=== PATIENT | male | born 1970 | race Two or more races ===

== ENCOUNTER 2024-08-20 13:50 | Day surgery (SDC) | payer MEDICAID, SELFPAY ==
[2024-08-20] VITALS (11 sets, daily range): BP systolic 107–138; BP diastolic 67–89; PULSE 65–81; RESP 12–20; TEMP 37–37.2; O2SAT 94–100; BMI 31.6
[2024-08-20] MEDS: RINGERS LACTATED 1000 ML 1,000 ML 60 ML IV (14:25)
[2024-08-20] MEDS: MIDAZOLAM INJ 1 MG/ML VIAL 2 ML (ASD USE ONLY) 2 MG IV (14:35)
[2024-08-20] MEDS: fentaNYL CIT INJ 50 mCg/ML AMP 2ML (ASD USE ONLY) IV (14:37)
== END 2024-08-20 15:22 | disposition home or self-care (01) ==
PROVIDERS: PCP Physician Assistant; Referring Provider Surgery; Visit Provider Surgery
PROC: 0DBE8ZX Excision of Large Intestine, Via Natural or Artificial Opening Endoscopic, Diagnostic (ICD-10-PCS; CPT 45380; principal; 2024-08-20 13:45)
DX: Z12.11 Encounter for screening for malignant neoplasm of colon (principal)
CPT/HCPCS: 45378; J2250; J3010; J7120

== ENCOUNTER 2025-03-14 01:04 | Emergency (ER) | payer MEDICAID, SELFPAY ==
[2025-03-14 01:19] VITALS: PULSE 96; RESP 20; O2SAT 98; BMI 28.5
--- NOTE | 2025-03-14 01:19 | PD.EDALCOH ---
ED Alcohol RME/HPI General Chief Complaint: Alcohol Stated Complaint: AMS Time Seen by Provider: 03/14/25 01:35 PST Arrival date/time: 03/14/25 01:04 PST RME / HPI MD complaint: alcohol intoxication RME / HPI narrative: See [facility] for Dr. Perkins's HPI Documentation. Related Data Home Medications ?Medication ?Instructions ?Recorded ?Confirmed lisinopril 20 mg tablet 20 mg PO QDAY 08/20/24 08/20/24 omeprazole 20 mg capsule,delayed 20 mg PO QDAY 08/20/24 08/20/24 release tamsulosin 0.4 mg capsule 0.4 mg PO QDAY 08/20/24 08/20/24 Allergies Allergy/AdvReac Type Severity Reaction Status Date / Time NKA* Allergy Uncoded 03/14/25 01:27 PST Review of Systems Review of Systems Systems Reviewed: All systems reviewed, normal except as documented Past Medical History Past Medical History NEUROLOGIC: Positive Neurological Disorders GENITOURINARY: Positive Genitourinary Disorders, Kidney Stones and Benign Prostatic Hyperplasia Surgical History SURGICAL: Positive Joint Replacement and Open Reduction Internal Fixation (Right Ankle ORIF screws) Social History ALCOHOL: Current ED Exam Narrative Physical exam: See [facility] for Dr. Perkins's Physical Exam Documentation. Course Quality Measures none Orders Category Date Time Status EKG (ED ONLY) *Do not use* NOW Care 03/14/25 01:21 Completed Saline [Insert IV] NOW Care 03/14/25 01:20 Completed Straight [In and Out Catheter] X1 Care 03/14/25 01:[address] cervical spine wo con Stat Exams 03/14/25 01:[address] chest abdomen pelvis wo Stat Exams 03/14/25 01:[address] head/brain wo con Stat Exams 03/14/25 01:21 Completed EKG (ED Only) Stat Exams 03/14/25 01:21 Draft XR chest 1V portable Stat Exams 03/14/25 01:21 Completed Acetaminophen Stat Lab 03/14/25 02:50 Completed Alcohol, Blood Medical Stat Lab 03/14/25 02:50 Completed Ammonia Stat Lab 03/14/25 02:50 Completed Bilirubin,Direct Stat Lab 03/14/25 02:50 Completed CBC Stat Lab 03/14/25 02:50 Completed CK [Creatine Kinase] Stat Lab 03/14/25 02:50 Completed CMP [Comprehensive Metabolic Panel] Stat Lab 03/14/25 02:50 Completed Drug Screen,Urine Stat Lab 03/14/25 02:44 Completed Lipase Stat Lab 03/14/25 02:50 Completed Magnesium Stat Lab 03/14/25 02:50 Completed PT [Prothrombin Time with INR] Stat Lab 03/14/25 02:50 Completed PTT [Partial Thromboplastin Time] Stat Lab 03/14/25 02:50 Completed Salicylate Stat Lab 03/14/25 02:50 Completed Troponin I Stat Lab 03/14/25 02:50 Completed UA, C/S IF [Urinalysis, C/S if Indicated] Stat Lab 03/14/25 02:44 Completed VBG [Venous Blood Gas] Stat Lab 03/14/25 02:50 Completed Ondansetron Inj [Zofran Inj] Med 03/14/25 01:20 Discontinued 4 mg IVP X1 ONE Ringers Lactated 1000 ml [Lactated Ringers] 1,000 ml Med 03/14/25 02:56 Discontinued IV 1,000 mls/hr Sodium Chloride 0.9% 1000 ml [Ns] 1,000 ml Med 03/14/25 01:20 Discontinued IV 999 mls/hr Vital Signs Vital signs: Vital Signs Temperature 98.8 F 03/14/25 01:33 PST Pulse Rate 90 03/14/25 01:33 PST Respiratory Rate 16 03/14/25 01:33 PST Blood Pressure 126/80 03/14/25 01:33 PST Pulse Oximetry (%) 100 03/14/25 01:33 PST Oxygen Delivery Method Room Air 03/14/25 01:33 PST Discharge Plan Plan Patient Disposition: HOME (Self Care) Prescriptions/Referrals Prescriptions/Med Rec: No Action lisinopril 20 mg tablet 20 mg PO QDAY tamsulosin 0.4 mg capsule 0.4 mg PO QDAY omeprazole 20 mg capsule,delayed release(DR/EC) 20 mg PO QDAY Referrals: Conrad Browning [Primary Care Provider] - In 1 week Problem List Clinical Impression: Alcoholic intoxication Patient/Caregiver Discharge Instructions Discharge Activity: activity as tolerated Education Materials: ED Alcohol Intoxication Additional Instructions: Discharge Instructions from Dr. Perkins printed for you: 1. You were treated for severe alcohol intoxication. 2. You are being released to your adult daughter. 3. Try to avoid alcohol in the future to prevent serious (and even fatal) injuries and illnesses. 4. See a private doctor on 03/15/2025 for recheck. Ask to review all test results and official radiology reports, to make sure you receive all necessary follow-ups and monitoring. Ask for help to quit alcohol. 5. Seek immediate medical care with any concerns. Instrucciones de tiffany del Dr. Perkins impresas para usted: 1. Recibi? tratamiento por intoxicaci?n alcoh?lica grave. 2. Se le da de tiffany y se le entrega a menjivar hija adulta. 3. Intente evitar el alcohol en el futuro para prevenir lesiones y enfermedades graves (e incluso mortales). 4. Consulte a un m?dico particular el 3 de 2024 para [place] revisi?n. Solicite revisar todos los resultados de las pruebas y los informes radiol?gicos oficiales para asegurarse de recibir todos los seguimientos y controles necesarios. Pida ayuda para dejar de beber alcohol. 5. Busque atenci?n m?dica inmediata ante cualquier inquietud. Print Language: Estonian Stand Alone Forms: [employer] Award Info., Patient Portal Info Letter Alcohol MDM Narrative MDM Narrative: This section includes all my notes and documentations, including HPI, PE, and ED course. To Perkins MD HPI: 54 y/o male BIBA with probable alcohol intoxication. Family found him outside passed out on the ground. Uncertain about how long he was out there. Uncertain about injury. Can't obtain any history from the patient due to decreased mental status. ROS: Can't obtain from the patient due to current clinical condition. Physical Exam: General: Severely intoxicated. Eyes:? Conjunctivae and lids clear.? EOMI.? PERRL. ENT:? No signs of head trauma. Neck:? Supple.? No tenderness. Heart:? RRR. Lungs:? No respiratory distress.? Good air movement.? No rhonchi, wheezing, rales.? Chest:? No tenderness. Abdomen:? Soft and nontender.? Normal bowel sounds.? No distension.? No rebound or guarding.? Back:? No tenderness.? Skin:? Warm and dry.? Neuro:? Cranial Nerves II-XII grossly intact.? No peripheral motor deficits. Musculoskeletal:? All major joints and bones are not tender with no limited ROM. I reviewed EMS notes. I reviewed all diagnostic test results: My interpretation of the EKG: NSR (84 bpm) with no ST-T changes. My interpretation of the chest x-ray is no acute findings. My review of the Head/Brain CT report is: No acute findings. My review of the C-Spine CT report is no fracture. My review of the Chest/Abdomen/Pelvis CT report is NAD. Blood tests and urine tests remarkable for serum alcohol 182. At this point, diagnoses include: Alcoholic Intoxication Treatment here included: IVF Zofran 4 mg IV Significant improvement noted, mental status returned to baseline. Daughter present to take him home. Recommended supportive care. Based on my best medical judgment, made decision no further evaluation or treatment indicated at this time. Patient and daughter understands and agrees to the discharge instructions customized and printed, see below. Discharge Instructions from Dr. Perkins printed for you: 1. You were treated for severe alcohol intoxication. 2. You are being released to your adult daughter. 3. Try to avoid alcohol in the future to prevent serious (and even fatal) injuries and illnesses. 4. See a private doctor on 03/15/2025 for recheck. Ask to review all test results and official radiology reports, to make sure you receive all necessary follow-ups and monitoring. Ask for help to quit alcohol. 5. Seek immediate medical care with any concerns. To Perkins MD Patient data External records reviewed:: [facility] previous records (Reviewed prior ED records from 11/23/21. Patient was seen for Ankle sprain and strain.) and EMS form Clinical information provided by:: EMS Social determinants that could affect healthcare access:: alcohol use Patient has the following chronic illnesses:: Kidney Stones and Benign Prostatic Hyperplasia How is presenting disease/condition affected by chronic disease/condition?: exacerbated by Evaluation data The following diagnostics were reviewed and interpreted by me:: lab results, radiology exam(s) and EKG tracing(s) (My interpretation of the EKG: NSR (84 bpm) with no ST-T changes. To Perkins MD) Lab and/or radiology exams considered but not ordered:: None Interpretation Summary: I reviewed all diagnostic test results: My interpretation of the EKG: NSR (84 bpm) with no ST-T changes. My interpretation of the chest x-ray is no acute findings. My review of the Head/Brain CT report is: No acute findings. My review of the C-Spine CT report is no fracture. My review of the Chest/Abdomen/Pelvis CT report is NAD. Blood tests and urine tests remarkable for serum alcohol 182. Medications / Prescriptions Medications or Prescriptions considered but not ordered:: None Medication administrations:: Medication Administration History Discontinued Medications Sodium Chloride (Ns) 1,000 mls @ 999 mls/hr IV .Q1H1M ONE Stop: 03/14/25 02:20 Last Infusion: 03/14/25 03:06 Dose: Infused Documented By: Admin: 03/14/25 01:32 PST Dose: 999 mls/hr Documented By: DOMINGA Lactated Ringer's (Lactated Ringers) 1,000 mls @ 1,000 mls/hr IV .Q1H ONE Stop: 03/14/25 03:55 Last Infusion: 03/14/25 04:11 Dose: Infused Documented By: Admin: 03/14/25 03:08 Dose: 1,000 mls/hr Documented By: DOMINGA Ondansetron HCl (Ondansetron Inj 2 Mg/Ml Inj 2 Ml) 4 mg IVP X1 ONE; Protocol Stop: 03/14/25 01:21 PST Last Admin: 03/14/25 01:32 PST Dose: 4 mg Documented By: DOMINGA Treatment here included: IVF Zofran 4 mg IV Consultations Consultation(s) initiated? (list below): No Diagnosis Differential diagnosis alcohol: alcohol withdrawal delirium, hypomagnesemia, alcohol intoxication, alcohol ketoacidosis and alcohol withdrawal seizure Most likely diagnosis given after review of the tests above:: Alcoholic Intoxication Admission Indicated Admission indicated?: not indicated Explain why admission is indicated or not indicated:: With significant improvement and no condition needing emergent intervention, there was no indication for admission. Admission Request Was there a request for admission?: No Disposition Plan Disposition Plan: Discharge Discharge Attestation Discharge Attestation: The patient and all family members were given an opportunity to ask questions and understood the discharge instructions. Discharge instructions specifically effects, indications for sooner follow up or return to the emergency department, and the expected course of current diagnosis. Patient condition: Stable
--- NOTE | 2025-03-14 01:21 | XR_ITS ---
Examination: CT chest, without intravenous contrast. CT abdomen, without intravenous contrast. CT pelvis, without intravenous contrast. 2-D sagittal and coronal reconstructions. 3-D reconstructions. Date and time of exam: March 14, 2025, 0221 hours INDICATIONS: Patient fell today with injury of the chest and abdomen, chest pain abdomen pain CTDI vol (mgy) 13.51 DLP (MGycm) 1112 Technique: Multiple CT images, 3.0 mm slice thickness, obtained chest, abdomen, pelvis, with the high-resolution 64 slice scanner.. Sagittal and coronal 2-D reconstructions are obtained. 3-D reconstructions Low dose protocols were performed. One or more of the following dose reduction techniques were used; automated exposure control, adjustment of the mA and/or KV according to patient size, use of iterative reconstruction technique. Findings: Thoracic aorta and pulmonary arteries intact No hemopericardium No pneumothorax or hemothorax Sternum and thoracic lumbar vertebral bodies intact No acute rib fractures No liver splenic or renal laceration Multiple subcentimeter bilateral renal calculi No ureteral calculi Aorta intact No free fluid in the abdomen Normal appendix Mild sigmoid diverticulitis, no pelvic abscess Bones of the pelvis and hips intact IMPRESSION: Thoracic aorta and pulmonary arteries intact No pneumothorax or pulmonary contusion No abdominal parenchymal laceration. Abdominal aorta intact Mild acute sigmoid diverticulitis
--- NOTE | 2025-03-14 01:21 | XR_ITS ---
Examination: CT brain head without contrast. 2-D sagittal coronal reconstructions Date and time of exam: March 14, 2025, 0218 hours INDICATIONS: Patient fell today with injury to the head, head pain CTDI: vol (mGy): 52.1 DLP: (mGycm): 1094 Technique: Multiple CT axial sections of the brain have been obtained, 5 mm slice thickness. Contrast has not been administered. 2-D sagittal, coronal reconstructions have been obtained Low dose protocols were performed. One or more of the following dose reduction techniques were used; automated exposure control, adjustment of the mA and/or KV according to patient size, use of iterative reconstruction technique. Findings: No significant ventricular enlargement. Intra-axial or extra-axial hemorrhage density is not seen. No mass effect or midline shift Basal cisterns are not remarkable. Fourth ventricle is midline. Cranial vault intact. Impression: Negative for acute hemorrhage, mass effect or midline shift
--- NOTE | 2025-03-14 01:21 | EKG_ITS ---
[facility] Test Date: 2025-03-14 Pat Name: CATERINA MURPHY Department: Room: - Gender: Male [employer]: : 1970 Requested By: To Mendez Order Number: [id number] Reading MD: To Mendez Measurements Intervals [place] Rate: 84 P: 51 MN: 145 QRS: 29 QRSD: 96 T: 24 QT: 393 QTc: 466 Interpretive Statements SINUS RHYTHM No previous ECG available for comparison /store/[email or web address]/[id number].pdf
--- NOTE | 2025-03-14 01:21 | XR_ITS ---
Examination: CT cervical spine without contrast 2-D sagittal reconstructions 2-D coronal reconstructions 3-D reconstructions. Date time: March 14, 2025, 0219 hours INDICATIONS: Patient fell today with injury to the neck, neck pain CTDI:vol (mGy) 15.06 DLP: (mGycm) 386 Technique: Multiple 2 mm axial sections of the cervical spine have been obtained. The coronal and sagittal reconstructions have been obtained. 3-D reconstructions have been obtained. Low dose protocols were performed. One or more of the following dose reduction techniques were used; automated exposure control, adjustment of the mA and/or KV according to patient size, use of iterative reconstruction technique. Findings: Axial sections demonstrate intact base of the skull. C1 exhibit satisfactory relationship to the odontoid. No acute cervical vertebral body fracture seen. Alignment posterior spinous processes satisfactory. Impression: No acute cervical fracture.
--- NOTE | 2025-03-14 01:21 | XR_ITS ---
EXAMINATION: AP chest single view TECHNIQUE: AP portable upright chest single view Date and time: March 14, 2025, 0234 hours INDICATIONS: Fever chest pain today. FINDINGS: Mild prominence left ventricle. Mild vascular congestion. No lobar pneumonia Intact osseous structures IMPRESSION: Mild vascular congestion. No lobar pneumonia
[2025-03-14] MEDS: ONDANSETRON INJ 2 MG/ML INJ 2 ML 4 MG IVP (01:32)
[2025-03-14] MEDS: SODIUM CHLORIDE 0.9% 1000 ML 1,000 ML 999 ML IV (01:32)
[2025-03-14 01:33] VITALS: BP 126/80; PULSE 90; RESP 16; TEMP 37.1; O2SAT 100
--- NOTE | 2025-03-14 02:47 | PRELIM_ITS ---
CT scan of the head without intravenous contrast (axial sections with sagittal and coronal reformats). March 14, 2025 0218 hours Clinical History: AMS Comparison: None Findings: There is no intracranial hemorrhage, extra-axial collection, mass, mass-effect or midline shift. There is good merrill-white differentiation. There is no CT evidence of acute large vascular territorial infarct. Ventricles are not enlarged or effaced. Subcentimeter parenchymal calcification within the parasagittal left frontoparietal region which may be related to old healed neurocysticercosis. There is atherosclerotic calcification along the intracranial vertebral arteries and carotid siphons. Visualized paranasal sinuses and tympanomastoid cavities are clear. The bony calvarium is intact. Impression: No intracranial hemorrhage, mass-effect or midline shift. No CT evidence of acute large vascular territorial infarct. Report Electronically Signed By: Bishnu Pollard 03/14/2025 2:46:17 AM [EST]
--- NOTE | 2025-03-14 02:49 | PRELIM_ITS ---
CT scan of the cervical spine without intravenous contrast (axial sections with sagittal and coronal reformats). March 14, 2025 0219 hours Clinical History: Trauma Comparison: None Findings: There is no fracture, traumatic subluxation or other acute osseous abnormality of the cervical spine. There is degenerative change in the cervical spine. The prevertebral soft tissues are unremarkable. Impression: No acute osseous abnormality of the cervical spine. Degenerative change. Report Electronically Signed By: Bishnu Pollard 03/14/2025 2:48:22 AM [EST]
[2025-03-14 02:50] LABS: Collection Type, Urine Clean Catch; Squamous Epithelial Cell,Urine 0 /hpf (0-5)
[2025-03-14 02:59] LABS: Amorphous Crystals,Urine Present (Absent); Bacteria,Urine Rare; Bilirubin,Urine Negative (Negative); Blood,Urine Negative (Negative); Clarity,Urine Clear (Clear/Hazy); Color,Urine Lt-Yellow (Lt Yel-Yel); Culture Indicated,Urine Not Indicated; Glucose, Urine Negative (Negative); Ketones,Urine Trace (Negative); Leukocyte Esterase,Urine Negative (Negative); Nitrite,Urine Negative (Negative); PH,Urine 6.0 (5.0-7.0); Protein,Urine Negative (Neg - Trace); RBC,Urine 2 /hpf (0-3); Specific Gravity,Urine 1.016 (1.001-1.035); Urobilinogen,Urine Negative mg/dL (0.0-1.0); WBC,Urine 1 /hpf (0-5)
[2025-03-14 03:00] LABS: Amphetamine/Methamp Scrn,U Negative (Negative); Barbiturate Screen,Urine Negative (Negative); Benzodiazepines Screen,Urine Negative (Negative); Benzoylecgonine Screen, Ur Negative (Negative); Fentanyl Screen,Urine Negative (Negative); Opiate Screen,Urine Negative (Negative); THC Screen,Urine Negative (Negative)
[2025-03-14] MEDS: RINGERS LACTATED 1000 ML 1,000 ML IV (03:08)
[2025-03-14 03:11] LABS: Base Excess, Venous -4 (-3-3); O2 Saturation, Venous 94 % (96-97); PCO2, Venous 35 mmHg (36-56); PO2, Venous 69 mmHg (15-58); pH, Venous 7.38 (7.33-7.66)
[2025-03-14 03:17] LABS: Basophils # (Auto) 0.0 Thou/mm3 (0.0-0.2); Basophils % (Auto) 0 % (0-2.5); Eosinophils # (Auto) 0.1 Thou/mm3 (0.0-0.5); Eosinophils % (Auto) 1 % (0-10); Hematocrit 40.0 % (41.0-53.0); Hemoglobin 13.6 g/dL (13.5-16.0); Immature Granulocytes Auto 0.02 Thou/mm3 (0.00-0.00); Lymphocytes # (Auto) 1.9 Thou/mm3 (1.0-4.8); Lymphocytes % (Auto) 26 % (10-50); Mean Corpuscular HGB Conc 34.0 g/dl (31.0-37.0); Mean Corpuscular Hemoglobin 28.8 pg (25.0-35.0); Mean Corpuscular Volume 85 fL (80-100); Monocytes # (Auto) 0.7 Thou/mm3 (0.0-0.8); Monocytes % (Auto) 10 % (0-12); Neutrophils # (Auto) 4.4 Thou/mm3 (1.8-7.7); Neutrophils % (Auto) 62 % (37-80); Nucleated Red Blood Cell # 0.00 Thou/mm3 (0.00-0.00); Nucleated Red Blood Cell % 0 /100 WBC (0); Platelet Count 193 Thou/mm3 (140-440); RDW Standard Deviation 38.4 fL (35.1-43.9); Red Blood Count 4.72 Miln/mm3 (4.50-5.90); White Blood Count 7.1 Thou/mm3 (3.8-10.6)
[2025-03-14 03:28] LABS: INR 1.1 (0.9-1.3); Partial Thromboplastin Time 28.5 Seconds (22.0-36.0); Prothrombin Time 11.3 Seconds (9.0-12.2)
[2025-03-14 03:35] LABS: Acetaminophen < 2.0 mcg/mL (10.0-20.0); Alanine Aminotransferase 29 U/L (10-49); Albumin, Serum 4.5 gm/dL (3.5-5.0); Albumin/Globulin Ratio 2.1 (1.2-2.2); Alcohol, Blood Medical 182.0 mg/dL (0-10.0); Alkaline Phosphatase 61 U/L (46-116); Ammonia < 10 uMol/L (11-32); Anion Gap 13 (7-16); Aspartate Amino Transferase 16 U/L (0-34); BUN/Creatinine Ratio 11 Ratio (12-20); Bilirubin,Direct 0.2 mg/dL (0.0-0.3); Bilirubin,Total 0.7 mg/dL (0.3-1.2); Blood Urea Nitrogen 10 mg/dL (9-23); Calcium 8.4 mg/dL (8.3-10.6); Calcium (Corrected) 8.4 mg/dL (8.5-10.1); Carbon Dioxide 20.0 mMol/L (20.0-31.0); Chloride 112 mMol/L (98-107); Creatine Kinase 177 U/L (34-171); Creatinine (Component) 0.9 mg/dL (0.6-1.3); Estimated Creatinine Clearance 99.6 mL/min (>60); Globulin 2.1 gm/dL (2.3-3.5); Glucose 110 mg/dL (74-106); Lipase 47 U/L (12-53); Magnesium 1.9 mg/dL (1.6-2.6); Osmolality,Calculated 288 (275-295); Potassium 3.9 mMol/L (3.4-5.1); Salicylate < 3.0 mg/dL; Sodium 145 mMol/L (136-145); Total Protein 6.6 gm/dL (5.7-8.2); Troponin I < 0.002 ng/mL (0.0-0.045); eGFR > 60 See Note
--- NOTE | 2025-03-14 03:42 | PRELIM_ITS ---
CT scan of the chest, abdomen and pelvis without intravenous contrast (axial sections with sagittal and coronal reformats) March 14, 2025 0221 hours Clinical History: Fall Comparison: No prior study is available for comparison. Findings: There is dependent subsegmental atelectasis in the lungs. There is a 5 mm calcified granuloma in the left lower lobe. There is no pleural effusion or pneumothorax. The aorta is unremarkable on this noncontrast study. There is no mediastinal collection. There is mild cardiomegaly. There is no pericardial effusion. A small hiatal hernia is present. The liver, gallbladder, spleen, pancreas and right adrenal are unremarkable on this noncontrast study. There is a small 1 cm hypodense lesion in the left adrenal, likely adenoma. There are several small non-obstructing renal calculi, the largest measuring 5 mm on the right. There is mild left hydroure teronephrosis down to the urinary bladder which may related to recently passed left-sided urinary tract calculus. There is no evidence of bowel dilatation. The appendix is surgically absent. There are multiple colonic diverticula with wall thickening of the sigmoid colon and mild pericolonic fat stranding, suggesting diverticulitis (axial image 262/397). There is a 1.5 cm non-obstructing dependent vesical calculus. The prostate is mildly enlarged with its median lobe projecting within the bladder lumen. There is no free fluid or free air. The aorta and its branches demonstrate atheromatous calcification without evidence of aneurysm. No fracture is identified. Mild osseous degenerative changes are noted. Impression: 1. No visceral or bony injury to the chest, abdomen or pelvis. 2. Sigmoid colon diverticulitis as described. No free air or abscess. Recommend clinical correlation. 3. Non-obstructing vesical and renal calculi as described. Mild left hydroureteronephrosis may indicate recently passed left-sided urinary tract calculus or infection. Recommend clinical correlation 4. Other findings as described above. Report Electronically Signed By: Bishnu Pollard 03/14/2025 3:42:16 AM [EST]
[2025-03-14 04:11] VITALS: BP 98/74; PULSE 86; RESP 18; O2SAT 99
== END 2025-03-14 04:13 | disposition home or self-care (01) ==
PROVIDERS: Emergency Provider Emergency Medicine; PCP Physician Assistant
DX: F10.129 Alcohol abuse with intoxication, unspecified (principal); Y90.9 Presence of alcohol in blood, level not specified
CPT/HCPCS: 36415; 70450; 71045; 71250; 72125; 74176; 80053; 80307; 80320; 80329; 81001; 82140; 82248; 82550; 82803; 83690; 83735; 84484; 85025; 85610; 85730; 93005; 96361; 96374; 99283; J2405; J7030; J7120; G0480